=== PATIENT | male | born 1975 | race Caucasian/White ===

== ENCOUNTER 2016-04-06 09:45 | Emergency (ER) | payer OTHER ==
[2016-04-06 10:19] VITALS: BP 161/109; PULSE 94; RESP 18; TEMP 98.8; O2SAT 92
--- NOTE | 2016-04-06 10:53 | DX ---
PA and Lateral Chest History: Cough x2 months in a 40-year-old male; no previous studies are available for comparison. Findings: The heart and mediastinal contours are normal. Pulmonary vascularity is normal. There is c entral peribronchial thickening. There are no alveolar opacities seen to suggest pneumonia. Postopera tive changes are seen involving the left clavicle. Impression: Findings consistent with airways disease are noted.
--- NOTE | 2016-04-06 11:33 | UCPHY ---
H & P Time Seen by Provider: 04/06/16 10:46 Patient Type: New HPI/ROS: HPI Cough, fatigue. 40-year-old male by private vehicle. He complains of a cough which she states has been ongoing for a month and a half to 2 months with associated fatigue. He describes the cough is mostly dry but sometimes productive of a green sputum. He states that exertion sometimes exacerbates the cough any has shortness of breath associated with cough only. He does not have any significant past medical history. No history of coagulopathy. No other complaints. ROS: Constitutional: No fever, no chills. As above. Eyes: No discharge. No changes in vision. ENT: No sore throat. No nasal congestion or rhinorrhea. Respiratory: As above. Cardiac: No chest pain, no palpitations. Gastrointestinal: No abdominal pain, no vomiting, no diarrhea. Genitourinary: No hematuria. No dysuria or increased frequency with urination. Musculoskeletal: No back pain. No neck pain. No myalgias or arthralgias. Skin: No rashes. Neurological: No headache. No focal weakness or altered sensation. Past medical history: None. Social history: But nonsmoker. Here by himself. Physical Exam: General Appearance: Alert, no distress. This patient is responding to questions appropriately and in full sentences. This patient appears well- hydrated and well-nourished. Eyes: Pupils equal and round no pallor or injection. No lid edema, erythema or injection. ENT, Mouth: Mucous membranes are moist. The pharyngeal tissues are unremarkable. No edema or swelling. No asymmetry suggestive of abscess. No erythema or exudates. Respiratory: There are no retractions, lungs are clear to auscultation with good air movement bilaterally. Cardiovascular: Regular rate and rhythm. No murmur. Neurological: Motor sensory function is grossly intact. Cranial nerves are normal. Gait is normal. Skin: Warm and dry, no rashes. Musculoskeletal: Neck is supple and nontender. Extremities are symmetrical. All joints range without pain or impingement. Psychiatric: No agitation. No depression. Database: Rapid strep-negative. Rapid flu-negative. EKG: Imaging: Chest x-ray PA and lateral; the cardiac mediastinal silhouette is unremarkable. No evidence of infiltrate or pneumothorax. Bronchitis noted. No other acute cardiopulmonary disease process noted. Interpreted by me. Procedures: Emergency department course: From triage, the patient was sent for chest x-ray. On my evaluation I discussed the results of his chest x-ray as well as rapid strep and rapid flu tests. 11:30 a.m., patient re-evaluated. Discussed results of chest x-ray and other diagnostic results. I will prescribe an albuterol meter dose inhaler and Tessalon Perles. His vital signs have been reviewed he is moderately hypertensive. Afebrile. Vital signs are otherwise unremarkable. I feel that pulmonary embolism is unlikely. I do not feel that antibiotics are indicated at this time. I will have him follow up with Dr. Alex Alonso or Dr. Akres of the pulmonology service for re-evaluation of his ongoing cough. Return to emergency department an urgent care precautions have been discussed with him. All of his questions were answered. He was discharged in good condition. Differential Diagnosis: The differential diagnosis on this patient includes but is not limited to bronchitis, viral syndrome, pneumonitis, reactive airway disease. Bacterial pneumonia, serious bacterial infection unlikely. This represents a partial list of diagnoses considered. These considerations are based on history, physical exam, past history, reassessment and diagnostic testing. Smoking Status: Never smoked Constitutional: Initial Vital Signs Temperature (C) 37.1 C 04/06/16 10:14 Heart Rate 94 04/06/16 10:14 Respiratory Rate 18 04/06/16 10:14 Blood Pressure 161/109 H 04/06/16 10:14 O2 Sat (%) 92 04/06/16 10:14 O2 Delivery Mode Room Air Allergies/Adverse Reactions: No Known Allergies Allergy (Unverified 04/06/16 10:14) Home Medications: Medication Instructions Recorded Albuterol [Proventil Inhaler HFA 2 puffs IH Q2-4PRN PRN #1 mdi 04/06/16 (*)] Benzonatate [Tessalon Pearles] 100 mg PO TID #12 cap 04/06/16 Proscar 5 MG (*) 04/06/16 Medical Decision Making - Data Points Laboratory Results: 04/06/16 04/06/16 Unknown 10:20 Influenza Typ A,B (DFA) NEGATIVE FOR FLU (NEGATIVE) Group A Strep Screen NEGATIVE (NEGATIVE) Group A Strep DNA Pending Departure - Departure Disposition: Home, Routine, Self-Care Clinical Impression: Reactive airway disease, Bronchitis Condition: Good Instructions: Chronic Bronchitis (ED), Reactive Airways Disease (ED) Additional Instructions: Read and follow provided instructions. Follow-up with postal carrier, I provided you with 2 different referrals, in 2-3 days for re-evaluation and further management. Albuterol meter dosed inhaler: 1-2 puffs every 2-4 hours as needed for cough and shortness of breath. Take medication as prescribed. Return to the emergency department for worsening cough, shortness of breath, fever or other serious concerns. Referrals: Alex Akers MD [Medical Doctor] - As per Instructions Alex Alonso MD [Medical Doctor] - As per Instructions Prescriptions: Albuterol [Proventil Inhaler HFA (*)] 2 puffs IH Q2-4PRN PRN #1 mdi PRN Reason: Sob/Dyspnea Benzonatate [Tessalon Pearles] 100 mg PO TID #12 cap - PQRS PQRS Measurement: Not applicable.
== END 2016-04-06 11:41 | disposition home or self-care (01) ==
LOC: CED 09:45
DX: J45.909 Unspecified asthma, uncomplicated (principal)
CPT/HCPCS: 71020-PO; 87400-PO; 87880-PO; 99203-PO; G0463-PO